=== PATIENT | male | born 1990 | race African-American/Black ===

== ENCOUNTER 2018-10-04 13:40 | Emergency (ER) | payer MEDICAID ==
[2018-10-04] MEDS ORDERED: IBUPROFEN 600 MG TAB PO ONE (14:01)
[2018-10-04] MEDS ORDERED: GABAPENTIN 300 MG CAP PO ONE (14:01)
[2018-10-04] MEDS ORDERED: CYCLOBENZAPRINE 10 MG TAB PO ONE (14:01)
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
[2018-10-04 15:17] VITALS: BP 125/80
== END 2018-10-04 15:20 | disposition home or self-care (01) ==
DX: S39.012A Strain of muscle, fascia and tendon of lower back, initial encounter (principal); S16.1XXA Strain of muscle, fascia and tendon at neck level, initial encounter; S43.401A Unspecified sprain of right shoulder joint, initial encounter; V49.49XA Driver injured in collision with other motor vehicles in traffic accident, initial encounter; Y92.410 Unspecified street and highway as the place of occurrence of the external cause
CPT/HCPCS: A4565